=== PATIENT | female | born 1930 | race American Indian/Alaskan Native ===

== ENCOUNTER 2016-04-22 01:21 | Inpatient (IN) | payer OTHER ==
[~2016-04-22] VITALS: Ht 162.6 cm; Wt 66.2 kg
[~2016-04-22 01:21] MED LIST: AMLO10TA2 PO; ASPI1CPM9 PO; BENA40TA2 PO; CALC-141 PO; CALCIUM PO; CHOL200012 PO; CHOL200040 PO; IRON18TA PO; LOSA1TAB16 PO; METF500T4 PO; METO25TA35 PO; OXYGEN INH; POLY17PO5 PO; PRAV40TA2 PO; TRAM50TA2 PO; VITAMIN B12 PO
[2016-04-22] MEDS ORDERED: SODIUM CHLORIDE 0.9% 1,000 ML IV ONE (01:52)
[2016-04-22] MEDS ORDERED: MECLIZINE CHEWABLE 25 MG TAB PO ONE (02:00)
[2016-04-22] MEDS ORDERED: CARBAMIDE PEROXIDE EAR DROPS 6.5%, 15ML RIGHT EAR ONE (02:00)
[2016-04-22] MEDS ORDERED: CARBAMIDE PEROXIDE EAR DROPS 6.5%, 15ML ONE (02:01)
[2016-04-22] MEDS ORDERED: MECLIZINE CHEWABLE 25 MG TAB ONE (02:01)
[2016-04-22] MEDS ORDERED: hydrALAzine 20 MG/ML, 1ML IV ONE ×2 (02:30→03:30)
[2016-04-22] MEDS ORDERED: hydrALAzine 20 MG/ML, 1ML ONE (02:33)
[2016-04-22 02:38] LABS: HEMOGLOBIN 14.7 g/dL (11.7-16.4)
[2016-04-22 02:46] LABS: BLOOD UREA NITROGEN 25 mg/dL (7-18)
[2016-04-22 02:56] LABS: IS PT STATUS REG ER OR PRE ER? YES
[2016-04-22] MEDS ORDERED: ASPI-515 PO (03:43)
[2016-04-22] MEDS ORDERED: ENALAPRILAT 1.25 MG/ML, 2ML IV ONE (04:00)
[2016-04-22] MEDS ORDERED: PROMETHAZINE 25 MG/ML, 1ML IM PRN (05:00)
[2016-04-22] MEDS ORDERED: ONDANSETRON 2MG/ML, 2ML IVP PRN (05:00)
[2016-04-22] MEDS ORDERED: ENALAPRILAT 1.25 MG/ML, 2ML IVPush PRN (05:00)
[2016-04-22] MEDS ORDERED: LABETALOL 5MG/ML, 20ML IV PRN (05:00)
[2016-04-22] MEDS ORDERED: ACETAMINOPHEN 325 MG TABLET PO PRN (05:00)
[2016-04-22 05:34] LABS: IS PT STATUS REG ER OR PRE ER? YES
[2016-04-22 06:38] VITALS: BP 139/79
[2016-04-22 08:20] VITALS: BP 130/73
[2016-04-22] MEDS ORDERED: PRAVASTATIN 40 MG TABLET PO SCH (09:00)
[2016-04-22] MEDS ORDERED: LOSARTAN 50MG TABLET PO SCH (09:00)
[2016-04-22] MEDS: METOPROLOL TARTRATE 25 MG TABLET PO SCH ×2 (09:04→17:42)
[2016-04-22] MEDS: ASPIRIN 81 MG TABLET EC PO SCH (09:04)
[2016-04-22] MEDS: ENOXAPARIN 40 MG/0.4 ML SQ SCH (09:04)
[2016-04-22] MEDS: AMLODIPINE 5 MG TABLET PO SCH ×2 (09:05→20:36)
[2016-04-22 12:15] LABS: IS PT STATUS REG ER OR PRE ER? NO
[2016-04-22 13:29] VITALS: BP 120/68
[2016-04-22 17:41] VITALS: BP 120/61
[2016-04-22 19:24] VITALS: BP 109/55
[2016-04-23 01:45] VITALS: BP 111/52
[2016-04-23 05:39] LABS: HEMOGLOBIN 14.1 g/dL (11.7-16.4)
[2016-04-23 05:55] LABS: IS PT STATUS REG ER OR PRE ER? NO
[2016-04-23 05:57] LABS: ASPARTATE AMINO TRANSFERASE 22 U/L (15-37); BLOOD UREA NITROGEN 23 mg/dL (7-18)
[2016-04-23] MEDS: ENOXAPARIN 40 MG/0.4 ML SQ SCH (05:58)
[2016-04-23] MEDS: METOPROLOL TARTRATE 25 MG TABLET PO SCH ×2 (05:58→17:47)
[2016-04-23 07:19] VITALS: BP 117/58
[2016-04-23] MEDS: AMLODIPINE 5 MG TABLET PO SCH ×2 (10:29→21:04)
[2016-04-23] MEDS: ASPIRIN 81 MG TABLET EC PO SCH (10:29)
[2016-04-23 12:35] VITALS: BP 139/71
[2016-04-23 19:32] VITALS: BP 133/67
[2016-04-23] MEDS ORDERED: PRAVASTATIN 40 MG TABLET PO SCH (21:00)
[2016-04-24 01:20] VITALS: BP 133/70
[2016-04-24 04:45] LABS: HEMOGLOBIN 14.2 g/dL (11.7-16.4)
[2016-04-24 05:05] LABS: BLOOD UREA NITROGEN 28 mg/dL (7-18)
[2016-04-24] MEDS: METOPROLOL TARTRATE 25 MG TABLET PO SCH (05:38)
[2016-04-24 05:39] VITALS: BP 129/82
[2016-04-24] MEDS: ENOXAPARIN 40 MG/0.4 ML SQ SCH (05:39)
[2016-04-24 08:20] VITALS: BP 147/76
[2016-04-24] MEDS ORDERED: MECL-85 PO (09:27)
[2016-04-24] MEDS: AMLODIPINE 5 MG TABLET PO SCH (09:30)
[2016-04-24] MEDS: ASPIRIN 81 MG TABLET EC PO SCH (09:30)
== END 2016-04-24 11:25 | disposition home health service (06) | DRG 302 ==
LOC: ED 02:19 → EDIP 03:00 → UNDOADMIN 03:52 → 4WST 06:18
PROVIDERS: ADMIT Internal Medicine; ATTEND Internal Medicine
DX: I25.10 Atherosclerotic heart disease of native coronary artery without angina pectoris (principal); I50.31 Acute diastolic (congestive) heart failure; J96.10 Chronic respiratory failure, unspecified whether with hypoxia or hypercapnia; I16.0 Hypertensive urgency; E11.9 Type 2 diabetes mellitus without complications; E78.5 Hyperlipidemia, unspecified; I25.2 Old myocardial infarction; I48.91 Unspecified atrial fibrillation; J44.9 Chronic obstructive pulmonary disease, unspecified; K21.9 Gastro-esophageal reflux disease without esophagitis; Z86.73 Personal history of transient ischemic attack (TIA), and cerebral infarction without residual deficits; Z85.528 Personal history of other malignant neoplasm of kidney; Z87.891 Personal history of nicotine dependence; Z90.5 Acquired absence of kidney; Z90.710 Acquired absence of both cervix and uterus; Z91.19 Patient's noncompliance with other medical treatment and regimen; Z95.5 Presence of coronary angioplasty implant and graft; Z99.81 Dependence on supplemental oxygen; Z90.89 Acquired absence of other organs; Z90.722 Acquired absence of ovaries, bilateral; Z90.49 Acquired absence of other specified parts of digestive tract; Z88.5 Allergy status to narcotic agent; K57.90 Diverticulosis of intestine, part unspecified, without perforation or abscess without bleeding; I11.0 Hypertensive heart disease with heart failure
CPT/HCPCS: 36415; 70450; 71010; 80048; 80053; 80061; 82040; 84443; 84484; 85025; 93005; 93306; 96374; J1650; J0360

== ENCOUNTER 2016-09-01 03:08 | Emergency (ER) | payer OTHER ==
[~2016-09-01] VITALS: Ht 152.4 cm; Wt 66.4 kg
[~2016-09-01 03:08] MED LIST changes: +ASPI-515 PO; +MECL-85 PO
[2016-09-01 04:51] VITALS: BP 169/62
== END 2016-09-01 05:13 | disposition home or self-care (01) ==
LOC: ED 03:54
DX: S06.0X0A Concussion without loss of consciousness, initial encounter (principal); G89.11 Acute pain due to trauma; M79.605 Pain in left leg; E11.9 Type 2 diabetes mellitus without complications; I10 Essential (primary) hypertension; I25.2 Old myocardial infarction; J44.9 Chronic obstructive pulmonary disease, unspecified; Z85.528 Personal history of other malignant neoplasm of kidney; Z86.73 Personal history of transient ischemic attack (TIA), and cerebral infarction without residual deficits; Z90.710 Acquired absence of both cervix and uterus; Z99.81 Dependence on supplemental oxygen; W19.XXXA Unspecified fall, initial encounter; Y93.89 Activity, other specified; Y99.8 Other external cause status; Y92.009 Unspecified place in unspecified non-institutional (private) residence as the place of occurrence of the external cause
CPT/HCPCS: 70450; 99284

== ENCOUNTER → 2016-09-28 | Outpatient (CLI) | payer OTHER | END | disposition home or self-care (01) | LOC: CFH 12:05 | PROVIDERS: ATTEND Nurse Practitioner Family | DX: N28.1 Cyst of kidney, acquired (principal); N32.89 Other specified disorders of bladder; Z85.528 Personal history of other malignant neoplasm of kidney; Z90.5 Acquired absence of kidney | CPT/HCPCS: 76770 ==

== ENCOUNTER 2019-02-18 12:41 | Observation (INO) | payer MEDICARE ==
[~2019-02-18] VITALS: Ht 154.9 cm; Wt 51.1 kg
[~2019-02-18 12:41] MED LIST changes: -AMLO10TA2 PO; +AMLO10TA8 PO; -BENA40TA2 PO; +BENA40TA3 PO; -CHOL200012 PO; +CHOL200074 PO; +ENOX30DI3 SQ; -LOSA1TAB16 PO; +LOSA1TAB19 PO; +METF500T17 PO; -METF500T4 PO; +OXYC1TAB7 PO; +SENN-193 PO
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
[2019-02-18 13:10] LABS: BASOPHILS # (AUTO) 0.03 x10^3/uL (0-0.1); BASOPHILS % (AUTO) 1 % (0-1); EOSINOPHILS # (AUTO) 0.09 x10^3/uL (0-0.4); EOSINOPHILS % (AUTO) 2 % (1-7); LYMPHOCYTES # (AUTO) 0.78 x10^3/uL (1-3.4); LYMPHOCYTES % (AUTO) 16 % (22-44); MD NO; MEAN CORPUSCULAR HEMOGLOBIN 30.4 pg (27.0-34.8); MEAN CORPUSCULAR VOLUME 94.9 fL (80-100); MEAN PLATELET VOLUME 10.4 fL (7.4-10.4); MONOCYTES # (AUTO) 0.32 x10^3/uL (0.2-0.8); MONOCYTES % (AUTO) 6 % (2-9); NEUTROPHILS # (AUTO) 3.75 x10^3/uL (1.8-6.8); NEUTROPHILS % (AUTO) 75 % (42-75); PLATELET COUNT 137 x10^3/uL (130-400); RED BLOOD COUNT 4.53 x10^6/uL (3.82-5.3); RED CELL DISTRIBUTION WIDTH 15.7 % (9.6-15.2)
[2019-02-18 13:15] LABS: ALBUMIN 3.2 g/dL (3.4-5.0); ANION GAP 6 mmol/L (5-15); CALCIUM 9.2 mg/dL (8.5-10.1); CHLORIDE 110 mmol/L (98-107); CREATININE 0.68 mg/dL (0.55-1.02); INTERNATIONAL NORMALIZED RATIO 1.06 (0.93-1.1); PROTHROMBIN TIME 11.1 Seconds (9.6-11.5)
--- NOTE | 2019-02-18 13:19 | NUR ---
PATIENT TO IMAGING
--- NOTE | 2019-02-18 13:59 | NUR ---
REPORT CALLED TO KANDIS SCHULER
[2019-02-18 14:46] VITALS: BP 159/67
[2019-02-18] MEDS ORDERED: ONDANSETRON 2MG/ML, 2ML IVPush PRN (15:00)
[2019-02-18] MEDS ORDERED: ONDANSETRON ODT 4 MG PO PRN (15:00)
[2019-02-18] MEDS ORDERED: ACETAMINOPHEN 325 MG TABLET PO PRN (15:00)
[2019-02-18] MEDS: ENOXAPARIN 40 MG/0.4 ML SQ SCH (15:32)
[2019-02-18 15:33] VITALS: BP_SYST 146; BP_SYST 155; BP_SYST 179; BP_DIAS 71; BP_DIAS 85
[2019-02-18] MEDS ORDERED: SODIUM CHLORIDE 0.9% 1,000 ML IV ONE (16:00)
[2019-02-18 17:03] VITALS: BP 159/76
[2019-02-18] MEDS: METOPROLOL TARTRATE 25 MG TABLET PO SCH (17:04)
[2019-02-18 19:16] VITALS: BP 135/60
[2019-02-18] MEDS: AMLODIPINE 10 MG TAB PO SCH (21:27)
[2019-02-19] VITALS (8 sets, daily range): BP systolic 123–164; BP diastolic 60–75
[2019-02-19 06:02] LABS: BASOPHILS # (AUTO) 0.02 x10^3/uL (0-0.1); BASOPHILS % (AUTO) 1 % (0-1); EOSINOPHILS # (AUTO) 0.11 x10^3/uL (0-0.4); EOSINOPHILS % (AUTO) 2 % (1-7); LYMPHOCYTES # (AUTO) 0.92 x10^3/uL (1-3.4); LYMPHOCYTES % (AUTO) 17 % (22-44); MD NO; MEAN CORPUSCULAR HEMOGLOBIN 30.5 pg (27.0-34.8); MEAN CORPUSCULAR HGB CONC 32.3 g/dL (32.4-35.8); MEAN CORPUSCULAR VOLUME 94.5 fL (80-100); MEAN PLATELET VOLUME 10.4 fL (7.4-10.4); MONOCYTES # (AUTO) 0.49 x10^3/uL (0.2-0.8); MONOCYTES % (AUTO) 9 % (2-9); NEUTROPHILS # (AUTO) 3.91 x10^3/uL (1.8-6.8); NEUTROPHILS % (AUTO) 72 % (42-75); PLATELET COUNT 125 x10^3/uL (130-400); RED BLOOD COUNT 4.09 x10^6/uL (3.82-5.3); RED CELL DISTRIBUTION WIDTH 15.6 % (9.6-15.2)
[2019-02-19] MEDS: METOPROLOL TARTRATE 25 MG TABLET PO SCH ×2 (06:04→18:04)
[2019-02-19 06:05] LABS: CHLORIDE 110 mmol/L (98-107)
[2019-02-19 06:18] LABS: ALANINE AMINOTRANSFERASE 18 U/L (12-78); ALBUMIN 2.7 g/dL (3.4-5.0); ALKALINE PHOSPHATASE 48 U/L (45-117); ANION GAP 2 mmol/L (5-15); BILIRUBIN,TOTAL 0.9 mg/dL (0.2-1.0); CALCIUM 8.7 mg/dL (8.5-10.1); CREATININE 0.64 mg/dL (0.55-1.02); TOTAL PROTEIN 5.6 g/dL (6.4-8.2)
[2019-02-19] MEDS ORDERED: PRAVASTATIN 40 MG TABLET PO SCH (09:00)
[2019-02-19] MEDS ORDERED: FERROUS SULFATE 325 MG TABLET PO SCH (09:00)
[2019-02-19] MEDS: ASPIRIN 81 MG TABLET EC PO SCH (10:03)
[2019-02-19] MEDS: CALCIUM CARBONATE 500 MG TABLET PO SCH (10:04)
[2019-02-19] MEDS: AMLODIPINE 10 MG TAB PO SCH ×2 (10:04→22:22)
[2019-02-19] MEDS: CHOLECALCIFEROL 1,000 UNIT TABLET PO SCH (10:05)
[2019-02-19] MEDS: CYANOCOBALAMIN 1,000 MCG TABLET PO SCH (10:06)
[2019-02-19] MEDS: ENOXAPARIN 40 MG/0.4 ML SQ SCH (14:58)
[2019-02-20 00:31] VITALS: BP 151/73
[2019-02-20 06:09] VITALS: BP 175/67
[2019-02-20 06:13] VITALS: BP 168/64
[2019-02-20] MEDS: METOPROLOL TARTRATE 25 MG TABLET PO SCH (06:14)
[2019-02-20 08:58] VITALS: BP 159/64
[2019-02-20] MEDS: CALCIUM CARBONATE 500 MG TABLET PO SCH (10:10)
[2019-02-20] MEDS: AMLODIPINE 10 MG TAB PO SCH (10:10)
[2019-02-20] MEDS: CHOLECALCIFEROL 1,000 UNIT TABLET PO SCH (10:11)
[2019-02-20] MEDS: ASPIRIN 81 MG TABLET EC PO SCH (10:11)
[2019-02-20] MEDS: CYANOCOBALAMIN 1,000 MCG TABLET PO SCH (10:11)
[2019-02-20] MEDS: ENOXAPARIN 40 MG/0.4 ML SQ SCH (14:17)
[2019-02-20 14:30] VITALS: BP 134/70
== END 2019-02-20 14:52 | disposition home or self-care (01) ==
LOC: ED 13:44 → INTOOBSV 14:05 → EDIP 14:05 → 4EST 14:19 → DCLOUNGE 02-20 14:46
PROVIDERS: ADMIT Hospitalist; ATTEND Internal Medicine
DX: R55 Syncope and collapse (principal); S00.93XA Contusion of unspecified part of head, initial encounter; J98.11 Atelectasis; J96.10 Chronic respiratory failure, unspecified whether with hypoxia or hypercapnia; I35.1 Nonrheumatic aortic (valve) insufficiency; I10 Essential (primary) hypertension; E11.9 Type 2 diabetes mellitus without complications; I25.10 Atherosclerotic heart disease of native coronary artery without angina pectoris; Z85.528 Personal history of other malignant neoplasm of kidney; Z86.73 Personal history of transient ischemic attack (TIA), and cerebral infarction without residual deficits; Z79.84 Long term (current) use of oral hypoglycemic drugs; Z79.82 Long term (current) use of aspirin; Z79.01 Long term (current) use of anticoagulants; V00.141A Fall from scooter (nonmotorized), initial encounter; Y93.89 Activity, other specified; Y92.89 Other specified places as the place of occurrence of the external cause; Z95.5 Presence of coronary angioplasty implant and graft; Z99.81 Dependence on supplemental oxygen
CPT/HCPCS: 36415; 70450; 71045; 80048; 80053; 82040; 83036; 83735; 84100; 84145; 84443; 85025; 85610; 85730; 93005; 93880; 96360; 96361; 96372; 97162; 97166; 99284; G0378; J1650; J7030

== ENCOUNTER → 2020-05-13 | Outpatient (CLI) | payer MEDICARE ==
[~2020-05-13] MED LIST changes: +AMLO-211 PO; -AMLO10TA8 PO; -ASPI-515 PO; +ASPI-963 PO; +REGADENOSON 0.4 MG/5 ML SYRINGE ONE
[2020-05-13 12:23] LABS: BASOPHILS % (AUTO) 1 % (0-1); EOSINOPHILS % (AUTO) 1 % (1-7); LYMPHOCYTES % (AUTO) 18 % (22-44); MEAN CORPUSCULAR HEMOGLOBIN 30.3 pg (27.0-34.8); MEAN CORPUSCULAR HGB CONC 32.9 g/dL (32.4-35.8); MEAN PLATELET VOLUME 9.7 fL (7.4-10.4); MONOCYTES % (AUTO) 8 % (2-9); NEUTROPHILS % (AUTO) 73 % (42-75); PLATELET COUNT 129 x10^3/uL (130-400); RED BLOOD COUNT 4.75 x10^6/uL (3.82-5.3); RED CELL DISTRIBUTION WIDTH 14.5 % (9.6-15.2)
[2020-05-13 12:29] LABS: MD NO
[2020-05-13 12:32] LABS: ALBUMIN 3.3 g/dL (3.4-5.0); ANION GAP 3 mmol/L (5-15); CALCIUM 8.6 mg/dL (8.5-10.1); CHLORIDE 109 mmol/L (98-107)
[2020-05-13 12:37] LABS: ALANINE AMINOTRANSFERASE 22 U/L (12-78); ALKALINE PHOSPHATASE 48 U/L (45-117); BILIRUBIN,TOTAL 1.1 mg/dL (0.2-1.0); CHOL/HDL RATIO 2.2; CHOLESTEROL, TOTAL 167 mg/dL (140-239); CREATININE 0.74 mg/dL (0.55-1.02); HDL CHOL % 46 % (28-40); HDL CHOLESTEROL (DIRECT) 77 mg/dL (40-60); LDL CHOLESTEROL,CALCULATED 73 mg/dL (54-169); LDL/HDL RATIO 0.9 (0.5-3.0); TOTAL PROTEIN 6.4 g/dL (6.4-8.2); TRIGLYCERIDES 83 mg/dL (50-200); VLDL CHOLESTEROL 17 mg/dL (0-25)
== END | disposition home or self-care (01) ==
LOC: CVU 09:51
PROVIDERS: ATTEND Internal Medicine Cardiovascular Disease
DX: I08.3 Combined rheumatic disorders of mitral, aortic and tricuspid valves (principal); I65.23 Occlusion and stenosis of bilateral carotid arteries; I11.9 Hypertensive heart disease without heart failure
CPT/HCPCS: 36415; 80053; 80061; 83036; 85025; 93306; 93356; 93880; J2785

== ENCOUNTER 2020-05-19 12:21 | Outpatient (CLI) | payer MEDICARE ==
[~2020-05-19 12:21] MED LIST changes: -REGADENOSON 0.4 MG/5 ML SYRINGE ONE
[2020-05-19] MEDS ORDERED: REGADENOSON 0.4 MG/5 ML SYRINGE ONE (14:03)
== END 2020-05-19 23:59 | disposition home or self-care (01) ==
LOC: RAD 12:21
PROVIDERS: ATTEND Internal Medicine Cardiovascular Disease
DX: I35.1 Nonrheumatic aortic (valve) insufficiency (principal); I65.23 Occlusion and stenosis of bilateral carotid arteries; I25.10 Atherosclerotic heart disease of native coronary artery without angina pectoris
CPT/HCPCS: 78452; 93017; A9502; J2785